=== PATIENT | female | born 1940 | race Caucasian/White ===

== ENCOUNTER 2022-02-09 22:32 | Emergency (ER) | payer MEDICARE, BC ==
[~2022-02-09] VITALS: Ht 167.6 cm; Wt 59.1 kg
[~2022-02-09 22:32] MED LIST: ATELVIA PO; ATENOLOL50 MG PO; CALCIUM + D PO; FLONASE NASAL50 MCG; FLUARIX QUADRIV1 INJ IM; FLULAVAL IM; LEVOTHYROXIN50 MC1 PO; LEVOTHYROXINE75 MCG PO; LIPITOR10 MG PO; LISINOPRIL10 MG PO; LISINOPRIL5 MG PO; MULTI VITAMN PO; NEURONTIN100 MG PO; NEURONTIN300 MG PO; PROLIA60 MG/ML SC; SYNTHROID88 MCG PO; ZYRTEC-D AL1 PO
[2022-02-09 22:41] VITALS: BP 181/94
[2022-02-09 23:01] VITALS: BP 173/86
[2022-02-09 23:30] VITALS: BP 175/90
[2022-02-09 23:53] LABS: HEMATOCRIT 36.2 % (37.0-47.0); HEMOGLOBIN 11.8 g/dl (12.0-16.0); IMMATURE GRANULOCYTES 0.6 % (0.0-5.0); MEAN CELL VOLUME 97.6 fL CALC (80.0-100.0); MEAN CORPUSCULAR HGB 31.8 pG CALC (26.0-32.0); MEAN CORPUSCULAR HGB CONC 32.6 g/dL CAL (32.0-36.0); NEUT# 7.05 thou/uL (2.00-7.15); RED BLOOD COUNT 3.71 mill/uL (4.20-5.60); RED CELL DISTRI WIDTH 13.5 % (11.5-15.5)
[2022-02-10] VITALS: BP 168/90
[2022-02-10 00:15] LABS: ALBUMIN 4.1 g/dL (3.2-5.0); ALKALINE PHOSPHATASE 70 u/l (38-126); ANION GAP 12 (6-22 (CALC)); BILIRUBIN, TOTAL 0.9 mg/dL (0.0-1.4); BUN 13 mg/dL (8-23); BUN/CREATININE RATIO 26 (12-20 (CALC)); CARBON DIOXIDE 27 mmol/l (22-30); CHLORIDE 101 mmol/l (95-108); CREATININE 0.5 mg/dL (0.5-1.0); GFR > 60 ML/MIN (>=60 (CALC)); GFR FOR AFR.AMER. > 60 ML/MIN (>=60 (CALC)); POTASSIUM 3.9 mmol/l (3.5-5.1); SGOT/AST 37 u/l (9-36); SODIUM 137 mmol/l (137-146); TOTAL PROTEIN 7.2 g/dL (6.3-8.2)
[2022-02-10 00:36] VITALS: BP 168/90
== END 2022-02-10 00:44 | disposition short-term general hospital (02) ==
LOC: ED 22:32
PROVIDERS: Emergency Medicine
DX: S72.012A Unspecified intracapsular fracture of left femur, initial encounter for closed fracture (principal); I10 Essential (primary) hypertension; W01.0XXA Fall on same level from slipping, tripping and stumbling without subsequent striking against object, initial encounter; Y92.008 Other place in unspecified non-institutional (private) residence as the place of occurrence of the external cause; Z20.822 Contact with and (suspected) exposure to COVID-19

== ENCOUNTER 2022-11-20 12:55 | Emergency (ER) | payer MEDICARE, BC ==
[~2022-11-20] VITALS: Ht 167.6 cm; Wt 55.0 kg
[2022-11-20 13:31] VITALS: BP 156/89
[2022-11-20 14:11] LABS: BASO% 0.5 % (0-3); EOS% 0.7 % (0-8); HEMATOCRIT 39.4 % (37.0-47.0); HEMOGLOBIN 12.3 g/dl (12.0-16.0); IMMATURE GRANULOCYTES 2.1 % (0.0-5.0); LYMPH% 7.3 % (15-41); MEAN CELL VOLUME 98.5 fL CALC (80.0-100.0); MEAN CORPUSCULAR HGB 30.8 pG CALC (26.0-32.0); MEAN CORPUSCULAR HGB CONC 31.2 g/dL CAL (32.0-36.0); MONO% 7.8 % (2-13); NEUT# 6.67 thou/uL (2.00-7.15); NEUT% 81.6 % (42-76); RED CELL DISTRI WIDTH 14.4 % (11.5-15.5)
[2022-11-20 14:55] VITALS: BP 128/77
[2022-11-20 15:14] LABS: ALBUMIN 4.1 g/dL (3.2-5.0); ALKALINE PHOSPHATASE 79 u/l (38-126); ANION GAP 11 (6-22 (CALC)); BILIRUBIN, TOTAL 0.9 mg/dL (0.02-1.3); BUN 17 mg/dL (8-23); BUN/CREATININE RATIO 32 (12-20 (CALC)); CARBON DIOXIDE 29 mmol/l (22-30); CHLORIDE 105 mmol/l (95-108); CREATININE 0.5 mg/dL (0.5-1.0); GFR FOR AFR.AMER. > 60 ML/MIN (>=60 (CALC)); GFR OTHER RACES > 60 ML/MIN (>=60 (CALC)); POTASSIUM 3.9 mmol/l (3.5-5.1); SGOT/AST 45 u/l (9-36); SODIUM 141 mmol/l (137-146); TOTAL PROTEIN 6.8 g/dL (6.3-8.2)
[2022-11-20 15:16] VITALS: BP 148/88
[2022-11-20 15:31] VITALS: BP 132/83
[2022-11-20] MEDS ORDERED: LEVOTHYROXIN75 MCG PO (15:42)
[2022-11-20 16:12] VITALS: BP 132/83
== END 2022-11-20 16:17 | disposition short-term general hospital (02) ==
LOC: ED 12:55
PROVIDERS: Nurse Practitioner
PROC: 0T9B70Z Drainage of Bladder with Drainage Device, Via Natural or Artificial Opening (ICD-10-PCS; principal; 2022-11-20)
DX: S72.001A Fracture of unspecified part of neck of right femur, initial encounter for closed fracture (principal); I10 Essential (primary) hypertension; F03.90 Unspecified dementia, unspecified severity, without behavioral disturbance, psychotic disturbance, mood disturbance, and anxiety; W01.0XXA Fall on same level from slipping, tripping and stumbling without subsequent striking against object, initial encounter; Y92.009 Unspecified place in unspecified non-institutional (private) residence as the place of occurrence of the external cause